=== PATIENT | female | born 1940 | race Caucasian/White ===

== ENCOUNTER 2017-03-14 07:20 | Day surgery (SDC) | payer OTHER ==
[2017-03-14] VITALS (8 sets, daily range): BP systolic 143–164; BP diastolic 76–105; PULSE 94–110; RESP 18; TEMP 98–98.6; O2SAT 96–98
[~2017-03-14] VITALS: Ht 157.5 cm; Wt 61.0 kg
[2017-03-14 08:26] LABS: AUTOMATED NEUTROPHIL # 4.2 TH/MM3 (1.8-7.7); BASOPHIL # 0.1 TH/MM3 (0-0.2); BASOPHIL % 0.9 % (0.0-2.0); EOSINOPHIL % 0.2 % (0.0-4.0); HEMATOCRIT 41.6 % (35.0-46.0); HEMOGLOBIN 13.9 GM/DL (11.6-15.3); LYMPH % 21.9 % (9.0-44.0); LYMPHOCYTE # 1.4 TH/MM3 (1.0-4.8); MEAN CELL VOLUME 96.3 FL (80.0-100.0); MEAN CORPUSCULAR HEMOGLOBIN 32.2 PG (27.0-34.0); MEAN CORPUSCULAR HGB CONC 33.4 % (32.0-36.0); MEAN PLATELET VOLUME 9.2 FL (7.0-11.0); MONO % 8.8 % (0.0-8.0); MONOCYTE # 0.5 TH/MM3 (0-0.9); NEUT % 68.2 % (16.0-70.0); PLATELET COUNT 162 TH/MM3 (150-450); RED BLOOD COUNT 4.32 MIL/MM3 (4.00-5.30); RED CELL DISTRIBUTION WIDTH 13.5 % (11.6-17.2); WHITE BLOOD COUNT 6.2 TH/MM3 (4.0-11.0)
[2017-03-14] MEDS ORDERED: CYAN100 PO (08:31)
[2017-03-14] MEDS ORDERED: VITA250T3 PO (08:31)
[2017-03-14] MEDS ORDERED: MAPA500T13 PO (08:31)
[2017-03-14] MEDS ORDERED: [UNRECOGNIZED DRUG - OTHER] PO (08:31)
[2017-03-14] MEDS ORDERED: APIX5TAB PO (08:31)
[2017-03-14] MEDS ORDERED: OMEGCAP PO (08:31)
[2017-03-14] MEDS ORDERED: PYRI100T PO (08:31)
[2017-03-14] MEDS ORDERED: ESCI10TA PO (08:31)
[2017-03-14] MEDS ORDERED: KRIL300C3 PO (08:31)
[2017-03-14] MEDS ORDERED: [UNRECOGNIZED DRUG - OTHER] PO (08:31)
[2017-03-14] MEDS ORDERED: CARD180C5 PO (08:31)
[2017-03-14] MEDS ORDERED: CITRTAB8 PO (08:31)
[2017-03-14] MEDS ORDERED: [UNRECOGNIZED DRUG - OTHER] PO (08:31)
[2017-03-14] MEDS ORDERED: [UNRECOGNIZED DRUG - REMARK] PO (08:31)
[2017-03-14] MEDS ORDERED: CARV6.252 PO (08:31)
[2017-03-14] MEDS ORDERED: SLOWTAB PO (08:31)
[2017-03-14] MEDS ORDERED: VITA100018 PO (08:31)
[2017-03-14] MEDS ORDERED: MAGN64 PO (08:31)
[2017-03-14] MEDS ORDERED: COQ-50CA2 PO (08:31)
[2017-03-14] MEDS ORDERED: MAGN200T9 PO (08:31)
[2017-03-14] MEDS ORDERED: VITATAB11 PO (08:31)
[2017-03-14] MEDS ORDERED: OCUVTAB PO (08:31)
[2017-03-14 08:39] LABS: INTERNATIONAL NORMALIZED RATIO 1.1 RATIO; PROTHROMBIN TIME - PATIENT 11.1 SEC (9.8-11.6)
[2017-03-14 08:51] LABS: BICARBONATE 28.5 MEQ/L (21.0-32.0); CALCIUM 9.1 MG/DL (8.5-10.1); CREATININE 0.58 MG/DL (0.50-1.00)
[2017-03-14] MEDS ORDERED: CHLORHEXIDINE GLUCONATE 2 % 1 PACK (2 CLOTHS) TOPICAL PRN (09:15)
[2017-03-14] MEDS ORDERED: INSULIN HUMAN REGULAR 1,000 UNITS/10 ML VIAL SQ PRN (09:15)
[2017-03-14] MEDS ORDERED: SODIUM CHLORID 0.9% 500 ML IV PRN (09:15)
[2017-03-14] MEDS ORDERED: LACTATED RINGER'S 1000 ML IV PRN (09:15)
[2017-03-14] MEDS ORDERED: LORazepam 1 MG TAB SL SCH (09:15)
[2017-03-14] MEDS ORDERED: METOPROLOL TARTRATE 25 MG TAB PO PRN (09:15)
[2017-03-14] MEDS ORDERED: POVIDONE IODINE 5% (ANTISEPSIS KIT) 4 APPLICATIONS EACH NARE PRN (09:15)
[2017-03-14] MEDS ORDERED: SODIUM CHLORID 0.9% 500 ML INJ 500 ML IV SCH (09:30)
[2017-03-14] MEDS ORDERED: SODIUM CHLORIDE ONE (11:34)
[2017-03-14] MEDS ORDERED: HEPARIN ONE (11:34)
[2017-03-14] MEDS ORDERED: PROTAMINE SULFATE 50 MG/5 ML VIAL ONE (11:35)
[2017-03-14] MEDS ORDERED: SODIUM CHLOR 0.9% 250 ML INJ 250 ML ONE (11:35)
[2017-03-14] MEDS ORDERED: ISOPROTERENOL HCL 1 MG/5 ML AMP ONE (11:35)
[2017-03-14] MEDS ORDERED: HEPARIN SODIUM - IV 10,000 UNITS/10 ML VIAL ONE (11:35)
[2017-03-14] MEDS ORDERED: ROCURONIUM INJ 50 MG/5 ML SYRINGE IV PUSH ONE (12:00)
[2017-03-14] MEDS ORDERED: ESMOLOL HCL 100 MG/10 ML VIAL IV ONE (12:00)
[2017-03-14] MEDS ORDERED: NEOSTIGMINE 5 MG/5 ML SYRINGE IV PUSH ONE (12:00)
[2017-03-14] MEDS ORDERED: ONDANSETRON HCL 4 MG/2 ML VIAL IV ONE (12:00)
[2017-03-14] MEDS ORDERED: ePHEDrine/NS 25 MG/5 ML SYRINGE IV ONE (12:00)
[2017-03-14] MEDS ORDERED: LIDOCAINE HCL 1% PF 5 ML SYRINGE OTHER ONE (12:00)
[2017-03-14] MEDS ORDERED: PROPOFOL 200 MG/20 ML AMP IV ONE (12:00)
[2017-03-14] MEDS ORDERED: PHENYLEPH/NS 1000 MCG/10 ML SYR IV ONE (12:00)
[2017-03-14] MEDS ORDERED: MIDAZOLAM HCL 2 MG/2 ML VIAL IV ONE (12:00)
[2017-03-14] MEDS ORDERED: GLYCOPYRROLATE 1 MG/5 ML SYRINGE IV PUSH ONE (12:00)
[2017-03-14] MEDS ORDERED: HEPARIN-D5W 25,000 U/250 ML 250 ML ONE (12:54)
--- NOTE | 2017-03-14 14:12 | CATHPROC ---
DRC Computer HIS Report Study Information Study Number Admission Scheduled Start Study Start [id number] Mar 14 2017 7:20AM 03/14/2017 Mar 14 2017 11:21AM [place] [facility] Electrophysiology Study Admit Source Facility Department Other [facility] [address] - [employer] [place] Physician and Clinical Staff Initial Bert Cartwright Agile Tester Carrie Fong,МАРИЯ Agile Tester Heike Peck,SENIOR DIRECTOR FINANCE TECH2 Other Anesthesia, COMMERCIAL DRONE SOFTWARE DEVELOPER Recorder Lynn Raza,RN Recorder Cassandra Alvarez,BSRN Scrub Carlos Barnes,(R) Procedures Performed Procedure Location (Site) Vessel Name Cardioversion ICE CATHETER INSERT RA Atruim RF Ablation LT. ATRIUM LT. ATRIUM Equipment Time Bookmobile Librarian Description Size Mfg Part Number Used/Scraped NEEDLE, TRANSSEPTAL NRG 98 11:22 [facility] [id number] Used C1 [employer]/ EP 11:22 KIT, TRANSDUCER / AFIB [id number] Used PACER [id number] CATHETER, TACTICATH ABLAT BUNDLE 11:22 BUNDLE-[facility] Used 65 BUNDLE *[id number] BUNDLE [id number] CATHETER, FR7 OPTIMA SPIRAL 11:22 BUNDLE-[facility] FR7 *[id number]- Used BUNDLE BUNDLE [id number] 11:22 BUNDLE-[facility]EL CATHETER, JSN, QUAD BUNDLE FR 5 *[id number]- Used BUNDLE [id number] 11:22 BUNDLE-[employer]GEL CATHETER, JSN, QUAD BUNDLE FR 5 *[id number]- Used BUNDLE [id number] SET, COOL POINT TUBING 11:22 BUNDLE-[facility]. ANGEL *[id number]- Used BUNDLE BUNDLE SHEATH, FR8.5 STEERABLE SM 11:22 BUNDLE-[facility]. ANGEL 71CM [id number] Used 71CM BUNDLE COVER, TRANSDUCER CABLE 11:22 CONE INSTRUMENTS [id number] Used ACUNAV 11:22 CORDIS/PACER SHEATH, FR10 COY 11CM FR 10 [id number] Used 11:22 CORDIS/PACER SHEATH, FR9 COY 11CM FR 9 [id number] Used [id number] 11:22 MEDLINE INDUSTRIES PACK, CCL CUSTOM * Used *[id number] 11:22 MEDLINE PACER LOPEZ, LIMB * 9880 *[id number] Used [id number] 11:22 PCS [employer] MEDICAL SHEATH, FR4.5 PRELUDE 11CM FR 4.5 Used [id number] 11:22 NAMIC TUBING, HIGH PRESSURE 48" 48" Used *[id number] 11:22 NAMIC TUBING, HIGH PRESSURE 48" 48" Used *[id number] 11:22 [employer] MEDICAL BLANKET,WARM AIR CCL * Used *[id number] 11:22 [facility] MEDICAL ELECTRODE KIT, ETHAN X SURFACE * Used *[id number] 11:22 [facility] MEDICAL SHEATH, EPS, FR6 FAST CATH FR 6 Used *[id number] 11:22 [facility] MEDICAL SHEATH, EPS, FR7 FAST CATH FR 7 [id number] Used [id number] 11:22 [facility] MEDICAL SHEATH, EPS, FR8 FAST CATH FR 8 Used *[id number] CATHETER, ACUNAV FR10 ICE [id number] 12:33 SVEN FR 10 Used (SVEN) *[id number] [facility] PAD, ELECTROSURGICAL 11:22 * [id number] *[id number] Used SURGICAL GROUNDING (BLUE) History: Current Medications Medication Dosage/Unit Route Frequency Last Date/Time Taken Beta Terri ELIQUIS History: Allergies Allergy Reaction Sulfa (Sulfonamide Antibiotics) aspirin History: Risk Factors Family History of Hypertension Dyslipidemia Premature CAD Yes Yes Yes Peripheral Artery Diabetes Diabetes Therapy Disease Labs Hgb (g/dl) Hct (%) RBC (MIL/MM3) WBC (l/cumm) Platelets (thousands) 11.60-17.00 35.00-51.00 4.00-5.90 4.00-11.00 150.00-450.00 13.9 41.6 4.3 6.2 162 Glucose (mg/dl) BUN (mg/dl) Creatinine (mg/dl) BUN:Creatinine (1:x) 74.00-106.00 7.00-18.00 0.50-1.30 10.00-20.00 118 12 0.5 24 Na (meq/l) K (meq/l) Cl (meq/l) CO2 (mmol/L) Ca (mg/dl) 136.00-145.00 3.50-5.10 98.00-107.00 21.00-32.00 8.50-10.10 137 3.6 101 28.5 9.1 INR (PTT:PT) 0.90-1.10 1.1 Medication Medication Total Dose (Bolus/Oral) Medication Total Dosage/Unit 1% XYLOCAINE 40 mL HEPARIN 75787 units PROTAMINE 40 mg Medications (Bolus/Oral) Medication Time Given Dosage/Unit Administered By Reason 03/14/2017 12:22:00 1% XYLOCAINE 20 mL Bert White PM 20 mL 1% XYLOCAINE given in lab by Bert White in Left Groin via Subcutaneous. 03/14/2017 12:26:18 1% XYLOCAINE 20 mL Bert White PM 20 mL 1% XYLOCAINE given in lab by Bert White in Right Groin via Subcutaneous. 03/14/2017 12:35:51 HEPARIN 56740 units Anesthesia, COMMERCIAL DRONE SOFTWARE DEVELOPER [place] [address] units HEPARIN given in lab by Anesthesia, COMMERCIAL DRONE SOFTWARE DEVELOPER via Peripheral IV. Ordered by Bert White. [place] son: As per physicians verbal order. 03/14/2017 12:51:37 HEPARIN 2000 units Anesthesia, COMMERCIAL DRONE SOFTWARE DEVELOPER PM 2000 units HEPARIN given in lab by Anesthesia, COMMERCIAL DRONE SOFTWARE DEVELOPER via Peripheral IV. Ordered by Bert White. HEPARIN 03/14/2017 1:33:45 PM 2000 units Anesthesia, COMMERCIAL DRONE SOFTWARE DEVELOPER As per physicians ve rbal order 2000 units HEPARIN given in lab by Anesthesia, COMMERCIAL DRONE SOFTWARE DEVELOPER via Peripheral IV. Ordered by Bert White. Reas on: As per physicians verbal order. PROTAMINE 03/14/2017 1:59:40 PM 40 mg Anesthesia, COMMERCIAL DRONE SOFTWARE DEVELOPER As per physicians bharath bal order 40 mg PROTAMINE given in lab by Anesthesia, COMMERCIAL DRONE SOFTWARE DEVELOPER via Peripheral IV. Ordered by Bert White. Reason: As per physicians verbal order. Medication (Drip) Medication Time Given Dosage/Unit Concentration/Unit Diluent (ml) Solution 03/14/2017 12:52:10 HEPARIN DRIP 1000 units/hr 57080 units 250 D5W PM 1000 units/hr HEPARIN DRIP given in lab by Anesthesia, COMMERCIAL DRONE SOFTWARE DEVELOPER via Peripheral IV. Pump/Drip Flow = 10 ml /hr using [place] [address] units in 250 ml. Ordered by Bert White. Reason: As per physicians verbal order. ISUPREL 03/14/2017 1:46:07 PM 10 mcg/min 1 mg 250 NaCl .9 10 mcg/min ISUPREL given in lab by Anesthesia, COMMERCIAL DRONE SOFTWARE DEVELOPER via Peripheral IV. Pump/Drip Flow = 150 ml/hr usi ng NaCl .9 with a concentration of 1 mg in 250 ml. Ordered by Bert White. Reason: As per physicians verbal order. 03/14/2017 11:50:03 IV Solutions 0 mL (IV) NaCl .9 AM IV Solutions given in lab by Cassandra Alvarez BSRN via Peripheral IV. Pump/Drip Flow = 50 ml/hr usin g NaCl .9. Ordered by Bert White. Reason: As per physicians verbal order. 03/14/2017 11:50:33 IV Solutions 0 mL (IV) NaCl .9 AM IV Solutions given in lab by Cassandra Alvarez BSRN via Peripheral IV. Pump/Drip Flow = 50 ml/hr usin g NaCl .9. Ordered by Bert White. Reason: As per physicians verbal order. Initial Case Assessment Cardiovascular HR NIBP Chest Pain 158 153/87 0 Edema Present Skin color Skin None Normal Warm Dry Circulatory - Right Pulses Dorsalis Pedis 1 Scale (0,1,2,3,4,d) Circulatory - Left Pulses Dorsalis Pedis 1 Scale (0,1,2,3,4,d) Circulatory - Lower Extremities Color Lower Right Color Lower Left Normal Normal Neurological State Oriented to time-place- Alert Moves all extremities person Respiration - General Respiration Rate SpO2 (%) (B/min) 20 98 Final Case Assessment Cardiovascular HR Rhythm NIBP Chest Pain 109 st 118/55 0 Edema Present Skin color Skin None Normal Warm Dry Circulatory - Right Pulses Dorsalis Pedis 1 Scale (0,1,2,3,4,d) Circulatory - Left Pulses Dorsalis Pedis 1 Scale (0,1,2,3,4,d) Circulatory - Lower Extremities Color Lower Right Color Lower Left Normal Normal Neurological State Oriented to time-place- Alert Moves all extremities person Respiration - General Respiration Rate SpO2 (%) O2 (lpm) (B/min) 20 92 6 Chronological Log Time Study Chronological Log 11:34:09 Patient arrived via Bed. 11:34:11 Patient Name, D.O.B, / Armband Verified By R.N. 11:34:13 Consent signed by the physician and the patient and verified by the [employer] [place] staff. 11:34:15 Pre-op and post- op instructions given; patient acknowledges understanding of instructions. 11:34:17 Verbal Stimulation=2 Physical Stimulation=2 Airway=2 Respiration=2 TOTAL=10. (0=absent, 1=l imited, 2=present) 11:37:32 Anesthesia at bedside. Assumes care of patient. Virgen RAYMOND 11:37:34 Patient has been NPO for More than 6Hrs. 11:37:35 Skin Breakdown- non per pt 11:37:35 Patient Warmer Placed on the Table. 11:37:36 Disposable Defibrillator Pads Placed On Patient. 11:37:37 Warren Prominences Protected 11:37:38 A # 20 IV was noted in the Antecubital (right). Grade = 0 11:37:39 A # 20 IV was noted in the Antecubital (left). Grade = 0 11:37:40 History and physical on the chart or being dictated. IV Solutions given in lab by Cassandra Alvarez BSRN via Peripheral IV. Pump/Drip Flow = 50 ml/h r using NaCl .9. 11:50:03 Ordered by Bert White. Reason: As per physicians verbal order. IV Solutions given in lab by Cassandra Alvarez BSRN via Peripheral IV. Pump/Drip Flow = 50 ml/h r using NaCl .9. 11:50:33 Ordered by Bert White. Reason: As per physicians verbal order. Assessment: Initial Case, DS=782 BPM, PTRZ=072/87 mmhg, Chest Pain=0, Edema=None, Color=Normal, Skin = Warm, Dry Right Pulses: Ryan Ped=1 Left Pulses: Ryan Ped=1 11:50:56 Lower Right Extremities: Color=Normal Lower Left Extremities: Color=Normal Neurological: State=Alert, Ox3, RASHID Respiration: Resp=20 B/min, SpO2=98 % 11:51:33 Table restraints applied according to hospital policy 11:51:37 Right groin prepped with 2% chlorhexidine, and draped after a 3 min. waiting time. 11:51:40 Left groin prepped with 2% chlorhexidine, and draped after a 3 min. waiting time. 11:52:26 Reference ECG taken 12:04:26 MD notified ready. 12:04:51 MD responded 12:12:00 MD arrived. Time Out. Correct patient, procedure, procedure equipment, site and side verified with physicia n present. Time 12:18:16 concurred by MD, individual staff and COMMERCIAL DRONE SOFTWARE DEVELOPER. Time Out #2 - Consents verified, patient in correct position, all results are labled and displa yed, safety precautions 12:18:33 taken, antibiotics administered. Time out concurred by MD, individual staff and COMMERCIAL DRONE SOFTWARE DEVELOPER in procedu re 12:18:50 Case Start 12:18:59 Tej in progress. 12:21:18 Tej complete 12:22:00 20 mL 1% XYLOCAINE given in lab by Bert White in Left Groin via Subcutaneous. 12:22:37 Vascular access was obtained in the Fem Vein (left). 12:24:08 Vascular access was obtained in the Fem Vein (left). 12:24:11 Vascular access was obtained in the Fem Vein (left). 12:24:28 Vascular access was obtained in the Fem Art (left). A SHEATH, FR4.5 PRELUDE 11CM FR 4.5 was advanced into the Fem Art (left) using the Modified Archana blayne technique. 12:24:45 0.9ns pressure bag connected. 12:25:17 A SHEATH, EPS, FR6 FAST CATH FR 6 was advanced into the Fem Vein (left) using the Modified Seldinger technique. 12:25:25 A SHEATH, EPS, FR7 FAST CATH FR 7 was advanced into the Fem Vein (left) using the Modified Seldinger technique. 12:25:29 A SHEATH, FR10 COY 11CM FR 10 was advanced into the Fem Vein (left) using the Modified S eldinger technique. 12:26:18 20 mL 1% XYLOCAINE given in lab by Bert White in Right Groin via Subcutaneous. 12:26:39 Vascular access was obtained in the Fem Vein (right). 12:26:45 A SHEATH, EPS, FR8 FAST CATH FR 8 was advanced into the Fem Art (right) using the Modified Seldinger technique. A CATHETER, JSN, QUAD BUNDLE FR 5 was advanced vis Fem Vein (left) and placed in the CS. Placem ent was visually 12:28:18 confirmed under fluoroscopy. A CATHETER, JSN, QUAD BUNDLE FR 5 was advanced vis Fem Vein (left) and placed in the HIS. Place ment was 12:29:29 visually confirmed under fluoroscopy. 12:32:04 CATHETER, ACUNAV FR10 ICE (SVEN) FR 10 Was Postioned. A SHEATH, FR8.5 STEERABLE SM 71CM BUNDLE 71CM was exchanged in the Fem Vein (right). This was n ecessary in 12:33:06 order for catheter support. 12:34:41 [place] [address] units HEPARIN given in lab by Anesthesia, COMMERCIAL DRONE SOFTWARE DEVELOPER via Peripheral IV. Ordered by Graeme White Reason: As per 12:35:51 physicians verbal order. 12:36:34 A eps was advanced to the right atrium and passed through the septal wall to the left atriu m. 12:36:40 [place] out A CATHETER, FR7 OPTIMA SPIRAL BUNDLE FR7 was advanced vis Fem Vein (right) and placed in the LA . Placement 12:37:00 was visually confirmed under fluoroscopy. Mapping in progress. 12:41:01 Activated Clotting Time Drawn 12:47:35 Mapping complete. Catheter was removed 12:48:19 RF Ablation of the LT. ATRIUM with a CATHETER, TACTICATH ABLAT 65 BUNDLE. 12:50:30 ACT (Normal Range 90-180) = 318 12:51:37 2000 units HEPARIN given in lab by Anesthesia, COMMERCIAL DRONE SOFTWARE DEVELOPER via Peripheral IV. Ordered by Stanford White. 1000 units/hr HEPARIN DRIP given in lab by Anesthesia, COMMERCIAL DRONE SOFTWARE DEVELOPER via Peripheral IV. Pump/Drip Flow = 10 ml/hr using 12:52:10 D5[place] [address] units in 250 ml. Ordered by Hanscy. Christopher Reason: As per phclair donaldson verbal order. 12:57:41 Activated Clotting Time Drawn 13:04:04 ACT (Normal Range 90-180) = 361 13:27:00 Activated Clotting Time Drawn 13:33:38 ACT (Normal Range 90-180) = 330 2000 units HEPARIN given in lab by Anesthesia, COMMERCIAL DRONE SOFTWARE DEVELOPER via Peripheral IV. Ordered by Bert White Reason: As per 13:33:45 physicians verbal order. 13:34:33 Ablation complete. Catheter was removed A CATHETER, FR7 OPTIMA SPIRAL BUNDLE FR7 was advanced vis Fem Vein (right) and placed in the LA . Placement 13:35:07 was visually confirmed under fluoroscopy. 13:39:04 Spiral Catheter was removed A CATHETER, TACTICATH ABLAT 65 BUNDLE was advanced vis Fem Vein (right) and placed in the LA. P lacement was 13:39:11 visually confirmed under fluoroscopy. 13:41:26 Activated Clotting Time Drawn 13:44:05 ECG rhythm of AF noted. Patient cardioverted at 200 joules. Success synch. remains in Af 13:45:45 EPS in progress 10 mcg/min ISUPREL given in lab by Anesthesia, COMMERCIAL DRONE SOFTWARE DEVELOPER via Peripheral IV. Pump/Drip Flow = 150 ml/ hr using NaCl .9 13:46:07 with a concentration of 1 mg in 250 ml. Ordered by Bert White. Reason: As per physicians bharath bal order. 13:48:11 ACT (Normal Range 90-180) = 351 13:55:58 Isuprel off. 13:57:24 Catheter(s) removed without difficulty A SHEATH, FR9 COY 11CM FR 9 was exchanged in the Fem Vein (right). This was necessary in ord er to minimize 13:57:29 site leakage. 13:58:30 Sheath(s) left in place, secured, 0.9ns kvo connected and will be removed in Holding Area 40 mg PROTAMINE given in lab by Anesthesia, COMMERCIAL DRONE SOFTWARE DEVELOPER via Peripheral IV. Ordered by Bert White. R eleni: As per 13:59:40 physicians verbal order. 14:00:28 Sterile dressing applied to sites 14:06:07 Activated Clotting Time Drawn 14:06:42 PACU called. Spoke to Norah 14:06:54 Bedside Report will be given. Assessment: Final Case, JX=844 BPM, Rhythm=st, FMEM=611/55 mmhg, Chest Pain=0, Edema=None, [place] r=Normal, Skin = Warm, Dry Right Pulses: Ryan Ped=1 Left Pulses: Ryan Ped=1 14:10:07 Lower Right Extremities: Color=Normal Lower Left Extremities: Color=Normal Neurological: State=Alert, Ox3, RASHID Respiration: Resp=20 B/min, SpO2=92 %, O2=6 lpm 14:10:14 Case End 14:10:45 No case complications noted. 14:11:04 Cine recording checked. 14:11:10 Defibrillator and ground pads removed. Skin intact. 14:14:00 Activated Clotting Time Drawn 14:16:49 ACT (Normal Range 90-180) = 134 14:20:13 [facility] Study - Contrast Media Used In Study Contrast Total Opened (mL) Total Used (mL) Total Wasted (mL) Unspecified 0 0 0 End Study - Maximum Contrast Load Max Contrast Load (mL) 785.0 End Study - Radiation Exposure Fluoro Time (minutes) 3.9 End Study - Patient Disposition Complications Transferred To Interventional Outcome No Telemetry Bed successful
[2017-03-14] MEDS ORDERED: BACITRACIN OINT 0.9 GM PKT TOP ONE (14:15)
[2017-03-14] MEDS ORDERED: LORazepam 2 MG/ML VIAL IV PUSH PRN (14:15)
[2017-03-14] MEDS ORDERED: SODIUM CHLOR 0.9% 250 ML INJ 250 ML IV PRN (14:15)
[2017-03-14] MEDS ORDERED: ONDANSETRON HCL 4 MG/2 ML VIAL IV PUSH PRN (14:15)
[2017-03-14] MEDS ORDERED: METOCLOPRAMIDE HCL 10 MG/2 ML VIAL IV PUSH PRN (14:15)
[2017-03-14] MEDS ORDERED: ATROPINE SULFATE 1 MG/ML VIAL IV PUSH PRN (14:15)
[2017-03-14] MEDS ORDERED: LIDOCAINE HCL 1% 50 ML VIAL INFIL PRN (14:15)
[2017-03-14] MEDS ORDERED: oxyCODONE/ACETAMINOPHEN 5 MG/325 MG TAB PO PRN ×2 (14:15)
[2017-03-14] MEDS ORDERED: DO NOT ADM ANY ANTICOAGULANT DRUGS PRN (14:30)
[2017-03-14] MEDS ORDERED: *morphine SULFATE 8 MG/ML PERIprocedure ONLY ONE (14:38)
[2017-03-14] MEDS: APIXABAN 5 MG TABLET PO SCH (20:57)
[2017-03-14] MEDS: AMIODARONE 200 MG TAB PO SCH (20:58)
[2017-03-14] MEDS: CARVEDILOL 6.25 MG TAB PO SCH (20:58)
[2017-03-15] VITALS (13 sets, daily range): BP systolic 128–145; BP diastolic 75–83; PULSE 90–101; RESP 18; TEMP 97.6–98.6; O2SAT 95–96
--- NOTE | 2017-03-15 08:08 | PD.CARD.PN ---
Subjective Subjective Remarks Feeling better Objective Medications Current Medications Medications (Trade) Dose Ordered Sig/Chirag Route Start Time Stop Time Status Last Admin Lactated Ringer's 1,000 ml @ 30 mls/hr Q24H PRN IV 03/14/17 09:15 03/17/17 09:14 Sodium Chloride 500 ml @ 30 mls/hr [id number] PRN IV 03/14/17 09:15 03/17/17 09:14 (Lopressor) 25 mg WIND ENERGY ENGINEER PRN PO 03/14/17 09:15 03/17/17 09:14 (Betadine 5% Antisepsis Kit) 1 applic WIND ENERGY ENGINEER PRN EACH NARE 03/14/17 09:15 03/17/17 09:14 (Chlorhexidine 2% Cloth) 3 pack WIND ENERGY ENGINEER PRN TOPICAL 03/14/17 09:15 03/17/17 09:14 (NovoLIN R INJ) See Protocol Table ... WIND ENERGY ENGINEER PRN SQ 03/14/17 09:15 03/17/17 09:14 Sodium Chloride 500 ml @ 30 mls/hr [id number] IV 03/14/17 09:30 (Ativan) 1 mg WIND ENERGY ENGINEER SL 03/14/17 09:15 03/17/17 09:14 (Percocet 5-325 Mg) 1 tab Q4H PRN PO 03/14/17 14:15 03/15/17 04:36 (Percocet 5-325 Mg) 2 tab Q4H PRN PO 03/14/17 14:15 (Ativan Inj) 0.5 mg UNSCH PRN IV PUSH 03/14/17 14:15 03/15/17 14:14 (Atropine Inj) 0.5 mg UNSCH PRN IV PUSH 03/14/17 14:15 Sodium Chloride 250 ml @ 500 mls/hr ONCE PRN IV 03/14/17 14:15 03/15/17 14:14 (Reglan Inj) 10 mg Q4H PRN IV PUSH 03/14/17 14:15 (Zofran Inj) 4 mg Q4H PRN IV PUSH 03/14/17 14:15 (Xylocaine 1% Inj (50 ml)) 10 ml UNSCH PRN INFIL 03/14/17 14:15 03/15/17 14:14 (Eliquis) 5 mg BID PO 03/14/17 21:00 03/14/17 20:57 (Coreg) 6.25 mg BID PO 03/14/17 21:00 03/14/17 20:58 (Lexapro) 10 mg DAILY PO 03/15/17 09:00 (Cordarone) 400 mg BID PO 03/14/17 21:00 03/19/17 20:59 03/14/17 20:58 (Cordarone) 200 mg DAILY PO 03/20/17 09:00 Miscellaneous Information ALL NURSING DEPARTME... UNSCH PRN .XX 03/14/17 14:30 03/15/17 14:29 Vital Signs / I&O Vital Signs Date Time Temp Pulse Resp B/P (MAP) Pulse Ox O2 Delivery O2 Flow Rate FiO2 03/15/17 05:00 94 03/15/17 04:00 94 03/15/17 03:33 98.6 91 18 145/81 (102) 96 03/15/17 03:00 94 03/15/17 02:00 94 03/15/17 01:00 92 03/15/17 00:25 98.6 96 18 128/83 (98) 96 03/15/17 00:00 92 03/14/17 23:00 94 03/14/17 22:00 96 03/14/17 21:00 98 03/14/17 20:00 98 03/14/17 19:50 98.6 98 18 143/78 (99) 96 03/14/17 19:00 102 03/14/17 16:30 98.2 98 18 157/76 (103) 96 03/14/17 16:20 84 16 95 Room Air 03/14/17 16:15 97.8 85 16 143/75 (97) 94 Room Air 03/14/17 16:00 82 16 145/70 (95) 93 Room Air 03/14/17 15:45 83 16 148/69 (95) 99 Nasal Cannula 2 03/14/17 15:30 97.5 82 16 150/71 (97) 98 Nasal Cannula 2 03/14/17 15:15 84 15 147/70 (95) 97 Nasal Cannula 2 03/14/17 15:00 85 15 146/82 (103) 99 Nasal Cannula 3 03/14/17 14:45 88 15 149/73 (98) 97 Nasal Cannula 3 03/14/17 14:30 97.9 87 15 153/74 (100) 96 Nasal Cannula 3 03/14/17 08:19 98.0 110 18 164/105 (124) 98 I/O 03/14/17 03/14/17 03/14/17 03/15/17 03/15/17 03/15/17 07:00 15:00 23:00 07:00 15:00 23:00 Intake Total 240 ml 240 ml Output Total 250 ml Balance -10 ml 240 ml Intake Oral 240 ml 240 ml Output Urine Total 250 ml # Voids 3 Physical Exam GENERAL: Well-nourished, well-developed patient. SKIN: Warm and dry. Groin site soft without bruising or bleeding. HEAD: Normocephalic. EYES: No scleral icterus. No injection or drainage. NECK: Supple, trachea midline. No JVD or lymphadenopathy. CARDIOVASCULAR: Regular rate and rhythm without murmurs, gallops, or rubs. RESPIRATORY: Breath sounds equal bilaterally. No accessory muscle use. GASTROINTESTINAL: Abdomen soft, non-tender, nondistended. EXTREMITIES: No cyanosis, or edema. NEUROLOGICAL: Awake, alert, and oriented x 3. Non-focal. Laboratory Laboratory Tests Test 03/14/17 08:10 White Blood Count 6.2 TH/MM3 Red Blood Count 4.32 MIL/MM3 Hemoglobin 13.9 GM/DL Hematocrit 41.6 % Mean Corpuscular Volume 96.3 FL Mean Corpuscular Hemoglobin 32.2 PG Mean Corpuscular Hemoglobin Concent 33.4 % Red Cell Distribution Width 13.5 % Platelet Count 162 TH/MM3 Mean Platelet Volume 9.2 FL Neutrophils (%) (Auto) 68.2 % Lymphocytes (%) (Auto) 21.9 % Monocytes (%) (Auto) 8.8 % Eosinophils (%) (Auto) 0.2 % Basophils (%) (Auto) 0.9 % Neutrophils # (Auto) 4.2 TH/MM3 Lymphocytes # (Auto) 1.4 TH/MM3 Monocytes # (Auto) 0.5 TH/MM3 Eosinophils # (Auto) 0.0 TH/MM3 Basophils # (Auto) 0.1 TH/MM3 CBC Comment DIFF FINAL Differential Comment Prothrombin Time 11.1 SEC Prothromb Time International Ratio 1.1 RATIO Activated Partial Thromboplast Time 20.5 SEC Blood Urea Nitrogen 12 MG/DL Creatinine 0.58 MG/DL Random Glucose 118 MG/DL Calcium Level 9.1 MG/DL Sodium Level 137 MEQ/L Potassium Level 3.6 MEQ/L Chloride Level 101 MEQ/L Carbon Dioxide Level 28.5 MEQ/L Anion Gap 8 MEQ/L Estimat Glomerular Filtration Rate 101 ML/MIN Assessment and Plan Problem List: (1) Atrial fibrillation ICD Codes: I48.91 - Unspecified atrial fibrillation Plan: Sinus rhythm on telemetry. Groin sites stable. (2) S/P ablation of atrial fibrillation ICD Codes: Z98.890 - Other specified postprocedural states; Z86.79 - Personal history of other diseases of the circulatory system Plan: Discharge home, continue eliquis, follow-up with Dr. jones in 3 weeks per my discussion with him. Problem Qualifiers (1) Atrial fibrillation: Qualified Codes: I48.91 - Unspecified atrial fibrillation Marietta Perez Mar 15, 2017 08:08
[2017-03-15] MEDS ORDERED: ESCITALOPRAM OXALATE 10 MG TAB PO SCH (09:00)
[2017-03-15] MEDS ORDERED: NON-FORMULARY DRUG (Fish Oil-Cholecalciferol (Omega-3 Fish Oil/Vitamin) 1 CAP) PO SCH (09:00)
[2017-03-15 09:41] LABS: INTERNATIONAL NORMALIZED RATIO 1.1 RATIO; PROTHROMBIN TIME - PATIENT 11.6 SEC (9.8-11.6)
[2017-03-15] MEDS: CARVEDILOL 6.25 MG TAB PO SCH (10:16)
[2017-03-15] MEDS: APIXABAN 5 MG TABLET PO SCH (10:16)
[2017-03-15] MEDS: AMIODARONE 200 MG TAB PO SCH (10:16)
--- NOTE | 2017-03-15 15:03 | EKG ---
Date Performed: 03/15/2017 Time Performed: 06:21:04 PTAGE: 76 years EKG: Sinus rhythm Low QRS voltages in limb leads Borderline ECG PREVIOUS TRACING : 03/14/2017 15.50 DOCTOR: Abel Cruz Interpretating Date/Time 03/15/2017 15:03:10
--- NOTE | 2017-03-15 15:51 | EKG ---
Date Performed: 03/14/2017 Time Performed: 15:50:12 PTAGE: 76 years EKG: Sinus rhythm BORDERLINE LEFT AXIS DEVIATION BORDERLINE ECG PREVIOUS TRACING : 03/14/2017 08.23 DOCTOR: Abel Cruz Interpretating Date/Time 03/15/2017 15:49:50
--- NOTE | 2017-03-15 16:06 | EKG ---
Date Performed: 03/14/2017 Time Performed: 08:23:34 PTAGE: 76 years EKG: Atrial fibrillation with rapid ventricular response. Leftward axis Inferior and septal T wa ve changes are nonspecific Abnormal ECG NO PREVIOUS TRACING DOCTOR: Abel Cruz Interpretating Date/Time 03/16/2017 07:36:41
[2017-03-20] MEDS ORDERED: AMIODARONE 200 MG TAB PO SCH (09:00)
--- NOTE | 2017-04-28 15:01 | PD.CARD ---
Atrial Fibrillation Ablation PROCEDURE DATE: Mar 14, 2017 PROCEDURES PERFORMED: 1. Electrophysiology study on Isuprel infusion 2. CS cannulation 3. 3-D mapping 4. Transseptal approach 5. Right and left heart catheterization 6. Intracardiac echo 7. Radiofrequency ablation of atrial fibrillation 8. Pulmonary vein isolation 9. Posterior wall ablation 10. Mitral valve isolation 11. Mitral line creation 12. Left atrial tachycardia ablation 13. Roof line creation 14. Floor line creation 15. Anterior wall ablation 16. Cardioversion INDICATIONS FOR THE PROCEDURE Ms. Hoffmann is a 76-year-old female with atrial fibrillation, very symptomatic, on anticoagulation referred for electrophysiology study and ablation. The risks, the nature and the benefits of the procedure were clearly stated to her. The risks include pneumothorax, cardiac perforation, stroke, need for open heart surgery and even . The patient understood and agreed to proceed. DESCRIPTION OF THE PROCEDURE IN DETAIL As written informed consent was obtained prior to esophageal echocardiogram, the patient was kept on the table where she was prepped and draped in the usual sterile fashion. Conscious sedation was initiated and maintained throughout the procedure by the anesthesiologist. Once sedation was verified, the right and left inguinal areas were anesthetized with 2% Xylocaine. Using modified Seldinger technique, the left femoral vein was cannulated on three occasions, three guidewires were advanced. Over the wire a 6, 7 and a 10-[place] H[place] were advanced. Then the left femoral artery was cannulated on one occasion, one guidewire was advanced. Over the wire a 4-[place] Hemaquet was advanced. Then the right femoral vein was cannulated on one occasion, one guidewire was advanced. Over the wire a 8-[place] Hemaquet was advanced. Then under fluoroscopic guidance through the 6 and 7-[place] Hemaquet, two 5-[place] Savi curved quadripolar electrophysiology catheters were advanced and placed around the His as well as coronary sinus. Basic interval was measured. The patient was in atrial fibrillation. Through the 10-[place] Hema[place], a CordDropThought [place] AcuNav intracardiac echo catheter was advanced and placed at the right atrium. Multiple view was obtained. There was no pericardial effusion, pulmonary vein was seen, atrial septal was visualized. Then the 8-[place] Hemaquet in the right femoral vein was exchanged for AgilDropThought transseptal sheath that was placed all the way to the superior vena cava. Through the sheath a Jeanette needle was advanced, then the sheath, the dilator and the needle were progressed until foci engaged. Once engaged, the needle was advanced. RF was delivered for 2 seconds. I was able to cross into the left atrium. Once the needle crossed, the dilator was advanced. Once the dilator crossed, the sheath was advanced. Once the sheath crossed, the dilator and the needle were removed. At this point I did flood the system and fluid movement was seen in the left atrium the indicates the sheath is in good position. The patient already received 10,000 units of heparin. The goal is to keep an ACT around 350 during ablation. Then through the sheath a [place]luis 20 pulse circumferential catheter was advanced. Using Checkd.In endocardial solution mapping system, a two-dimensional configuration of the left atrium was obtained. Points were taken at the left superior and inferior veins, right superior and inferior veins, mitral valve, and appendages. Then through the sheath a [place]. [place]luis TactiCath 65cm 3.5mm irrigated tipped mapping and radiofrequency ablation catheter was advanced. Esophageal probe was placed temperature monitoring during ablation. When it increased to 0.5 degrees Celsius above baseline, I moved to a different area of the atrium. First I did isolate the left superior and inferior vein. I did make a [place] point around the veins. Posterior was ablated. Then a roof line was created, a floor line was created, a mitral line was isolated, then the mitral valve was isolated. At that point the patient was in left atrial tachycardia. I did create a line from the floor to the roof area, passing by the left atrial appendage. Then the right superior and inferior veins were isolated. I did remap the atrium. There is no significant signal in the atrium. At this point I decided to proceed with cardioversion. A 200 sync biphasic joule was delivered that converted the patient into sinus rhythm. At that point I did advance the circumferential catheter again into the vein. There was no signal into the vein, pacing from the vein showed no conduction to the atrium. Isuprel infusion was initiated at 20 mcg for 10 minutes. No tachyarrhythmia was induced, post Isuprel no tachyarrhythmia was induced. At that point the procedure was complete. All catheters were removed, atrial septal sheath was exchanged for 9-[place] Hemaquet, intracardiac echo showed no pericardial effusion. There is still good flow in the pulmonary vein. The patient is going to be transferred to the recovery room. No incident report. The patient tolerated the procedure. Blood loss was minimal. FINDINGS 1. Electrocardiogram: At baseline the patient was in atrial fibrillation, post procedure the patient was in sinus rhythm. 2. Basic interval: Base cycle length was around 600. Post ablation she was around 980 milliseconds. AH at 100 and HV at 48 milliseconds. 3. Tachyarrhythmia: Atrial fibrillation was mapped and ablated. Atrial tachycardia was ablated. The ablation was successful. CONCLUSION Successful electrophysiology study, mapping, radiofrequency ablation of atrial fibrillation, left atrial tachycardia, pulmonary vein isolation, posterior ablation, mitral valve isolation, mitral line creation, roof line creation, floor line creation, left atrial tachycardia, and cardioversion. COMMENTS AND RECOMMENDATIONS The patient is going to be transferred to the telemetry unit. Will be observed and when stable can be discharged home. Bert White MD Apr 28, 2017 15:01
== END 2017-03-15 12:06 | disposition home or self-care (01) ==
LOC: HDIC 07:20 → HCAT 07:20 → HCIS 16:55 → HCAT 03-15 12:06
PROVIDERS: ATTEND Internal Medicine Interventional Cardiology
DX: I48.91 Unspecified atrial fibrillation (principal); I10 Essential (primary) hypertension; E11.9 Type 2 diabetes mellitus without complications; E78.5 Hyperlipidemia, unspecified; Z79.01 Long term (current) use of anticoagulants
CPT/HCPCS: 00537; 80048; 85002; 85025; 85610; 85730; 86850; 86900; 86901; 92960; 93005; 93613; 93623; 93656; 93662; C1730; C1731; C1732; C1759; C1766; C2630; J1644; J2250; J2270; J2370; J2405; J2710; J2720; J3010; J7050